=== PATIENT | female | born 1945 | race Hispanic/Latino ===

== ENCOUNTER 2017-12-06 22:11 | Inpatient (IN) | payer MEDICARE ==
[2017-12-06] MEDS ORDERED: Adenosine 6 MG/2 ML VIAL ONE ×2 (22:49→22:53)
[2017-12-06 22:59] LABS: #Basophils 0.1 thou/uL (0.0-0.2); #Eosinphils 0.3 thou/uL (0.0-0.7); #Lymphocytes 3.3 thou/uL (1.20-3.40); #Monocytes 0.8 thou/uL (0.11-0.59); #Neutrophils 4.3 thou/uL (1.40-6.50); %Basophils 0.6 % (0.0-1.0); %Eosinophils 3.1 % (0.0-10.0); %Lymphocytes 38.1 % (21.0-51.0); %Monocytes 8.7 % (0.0-10.0); %Neutrophils 49.5 % (42.0-75.0); Hemoglobin 12.9 g/dL (12.0-16.0); Mean Corpuscular HGB CONC 33.1 g/dL (32.0-36.0); Mean Corpuscular Hemoglobin 30.8 pg (27.0-31.0); Mean Corpuscular Volume 93.1 fl (81.0-99.0); Mean Platelet Volume 8.6 fL (7.4-10.4); Platelet Count 218 thou/uL (130-400); RBC Distribution Width 12.1 % (11.5-14.5); Red Blood Cell (RBC) Count 4.19 mill/uL (4.20-5.40); White Blood Cell (WBC) Count 8.7 thou/uL (4.8-10.8)
--- NOTE | 2017-12-06 23:06 | RAD ---
AP VIEW OF THE CHEST: 12/06/17 INDICATION: Chest pain. FINDINGS: There is a generator pack overlying the left chest wall. Lungs are clear. Heart size is normal. No pl eural effusion, or pneumothorax is evident. IMPRESSION: No acute abnormality. POS: KIMBERLYH
[2017-12-06 23:22] LABS: ALT (SGPT) 62 U/L (8-55); AST (SGOT) 59 U/L (5-34); Albumin 4.1 g/dL (3.4-4.8); Alkaline Phosphatase 127 U/L (40-150); Anion Gap 15 mmol/L (10-20); BUN (Urea Nitrogen) 19 mg/dL (9.8-20.1); Bilirubin, Total 0.4 mg/dL (0.2-1.2); CK (CPK) 134 U/L (29-168); Calc. Creatinine Clearance 0 mL/min (70-130); Calcium 9.5 mg/dL (7.8-10.44); Carbon Dioxide 23 mmol/L (23-31); Chloride 105 mmol/L (98-107); Estimated GFR-MDRD 67; Globulin 3.1 g/dL (2.4-3.5); Glucose 235 mg/dL (83-110); Potassium 3.2 mmol/L (3.5-5.1); Protein, Total 7.2 g/dL (6.0-8.3); Sodium 140 mmol/L (136-145)
[2017-12-06 23:25] LABS: CKMB 1.9 ng/mL (0-6.6); Troponin I Less than 0.010 ng/mL (< 0.028)
[2017-12-06 23:46] LABS: Free T4 (Free Thyroxine) 1.25 ng/dL (0.70-1.48); Thyroid Stimulating Hormone 1.6104 uIU/mL (0.35-4.94)
[2017-12-07] MEDS ORDERED: Lorazepam 1 MG TAB PO PRN (03:41)
[2017-12-07] MEDS ORDERED: HumaLOG 300 UNITS/3 ML VIAL SC PRN ×2 (03:41)
[2017-12-07] MEDS ORDERED: Calcium Carbonate 500 MG ChewTAB PO PRN (03:41)
[2017-12-07] MEDS ORDERED: hydrALAZINE 20 MG/ML VIAL SLOW IVP PRN (03:41)
[2017-12-07] MEDS ORDERED: Senokot 8.6 MG TAB PO PRN (03:41)
[2017-12-07] MEDS ORDERED: traMADol HCl 50 MG TAB PO PRN (03:41)
[2017-12-07] MEDS ORDERED: Diabetic Tussin 200 MG/10 ML UDCUP PO PRN (03:41)
[2017-12-07] MEDS ORDERED: Dextrose 5% in Water 1,000 ML IV PRN (03:41)
[2017-12-07] MEDS ORDERED: Bisacodyl 5 MG TAB PO PRN (03:41)
[2017-12-07] MEDS ORDERED: Ondansetron HCl/PF 4 MG/2 ML Vial IVP PRN ×2 (03:41)
[2017-12-07] MEDS ORDERED: Benzonatate 100 MG CAP PO PRN (03:41)
[2017-12-07] MEDS ORDERED: Mag-Al 1200 mg/1200 mg/30 ML UDCUP PO PRN (03:41)
[2017-12-07] MEDS ORDERED: Loratadine 10 MG TAB PO PRN (03:41)
[2017-12-07] MEDS ORDERED: cloNIDine 0.1 MG TAB PO PRN (03:41)
[2017-12-07] MEDS ORDERED: Nitroglycerin 0.4 MG TAB (25 Tab Bottle) SL PRN (03:41)
[2017-12-07] MEDS ORDERED: Dextrose 50% Abboject 50 ML SYRINGE SLOW IVP PRN (03:41)
[2017-12-07] MEDS ORDERED: Acetaminophen 325 MG TAB PO PRN (03:41)
[2017-12-07 04:48] LABS: Troponin I 0.071 ng/mL (< 0.028)
--- NOTE | 2017-12-07 05:31 | HP ---
DATE OF ADMISSION: 12/07/2017 PRIMARY CARE PHYSICIAN: Josefina Hightower M.D. CHIEF COMPLAINT: Arrhythmia. HISTORY OF PRESENTING ILLNESS: Ms. Colby is a pleasant 72-year-old female with past medical history of diabetes, hypertension and dyslipidemia, who presented to the ER after she received a call from h er accounting recruiter, Dr. Munoz's office. History is mainly obtained by the patient herself and electr onic medical records have been reviewed. According to Ms. Colby, she has history of palpitations since she was a teenager. On and off, it ward ppens, but she has not had any workup done up until 2 weeks ago. She was referred to Cardiology 2 we eks ago for complaints of palpitation and was given a heart monitor to wear. Today, she received a c all and was told to come to the emergency room after the heart monitor captured some arrhythmias. Upon presentation to the emergency room last evening, she was found to have heart rate in the 180s. Today, she was not experiencing any chest pain, pressure, palpitations or shortness of breath. Upon presentation, she was found to be in SVTs with heart rate anywhere from 170-190 beats per minute. Gerald goldberg received adenosine x2 without any effect and eventually verapamil which helped convert her heart ra te to normal sinus rhythm. She is now being admitted for further evaluation and care. PAST MEDICAL HISTORY: 1. Diabetes mellitus. 2. Hypertension. 3. Dyslipidemia. 4. Osteoarthritis. 5. 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 PAST SURGICAL HISTORY: 1. Total knee replacement. 2. Cholecystectomy. 3. Hysterectomy. ALLERGIES: Allergic to EPINEPHRINE. SOCIAL HISTORY: She is and lives with the family. She works at [employer]. No history of drug, tobacco or alcohol abuse. She has 3 children. FAMILY HISTORY: Significant for colon cancer in her brother and heart disease in her mother. CURRENT MEDICATIONS: As listed in the emergency room record today, amlodipine 5 mg daily, clonidine 0.1 mg b.i.d., metformin 500 mg b.i.d., metoprolol succinate 100 mg 1-1/2 tablet once a day, potassiu m chloride 10 mEq daily, levothyroxine 50 mcg daily, losartan/hydrochlorothiazide 100 mg/12.5 mg ethan y, pantoprazole 40 mg daily. REVIEW OF SYSTEMS: The following complete review of systems was negative, unless otherwise mentioned in the HPI or below: Constitutional: Weight loss or gain, ability to conduct usual activities. Skin: Rash, itching. Eyes: Double vision, pain. ENT/Mouth: Nose bleeding, neck stiffness, pain, tenderness. Cardiovascular: Palpitations, dyspnea on exertion, orthopnea. Respiratory: Shortness of breath, wheezing, cough, hemoptysis, fever or night sweats. Gastrointestinal: Poor appetite, abdominal pain, heartburn, nausea, vomiting, constipation, or diarr hea. Genitourinary: Urgency, frequency, dysuria, nocturia. Musculoskeletal: Pain, swelling. Neurologic/Psychiatric: Anxiety, depression. Allergy/Immunologic: Skin rash, bleeding tendency. It is negative except for those mentioned in the history and physical. LABORATORY DATA AND IMAGING DATA: CBC is unremarkable. Serum chemistry shows potassium of 3.2, bloo d sugar 235, AST 59 and ALT 62. Cardiac enzymes, troponin less than 0.010. Upon presentation, it ward s jumped up to 0.071. TSH and free T4 within normal limits. Chest x-ray by my review has no evidenc e to suggest pleural effusion, edema or infiltrate. Twelve lead EKG by my review shows normal sinus rhythm with first-degree AV block with normal ST and T waves. This is after the conversion. PHYSICAL EXAMINATION: VITAL SIGNS: Upon presentation, blood pressure 139/97, heart rate of 172, respirations 18, temperatu re 97.6 and saturating 96% on room air. GENERAL: No acute distress, lying comfortably in bed. Daughter is at bedside. Awake, alert and diandra ented x3. HEENT: Mucous membrane is moist and pink. No oropharyngeal exudate or erythema. Head is normocepha lic, atraumatic. Pupils are equal, reactive to light and accommodation. Extraocular movement intact . NECK: Supple without any lymphadenopathy, JVD or bruit. CHEST: Clear to auscultation without any wheezing, rales or rhonchi. Rhythm is regular without any murmur, rubs or gallops. ABDOMEN: Soft, nontender, nondistended, positive bowel sounds. EXTREMITIES: Free of any cyanosis, clubbing, or edema. NEUROLOGIC: Examination is nonfocal. SKIN: Free of any rashes or bruises. Feel warm and dry to touch. NEUROLOGIC: Examination is nonfocal. PSYCHIATRIC: Normal affect. IMPRESSION AND PLAN: 1. Supraventricular tachycardia. This has been aborted by the use of the verapamil. She maintains in the normal sinus rhythm. Cause is unclear at this time. We will restart her home medications of blood pressure control and consult Cardiology for further evaluation. Echocardiogram will also be ob tained and we will continue to trend serial cardiac enzymes. 2. Diabetes mellitus. Start her on insulin sliding scale with frequent Accu-Cheks. 3. History of hypertension. Resume her home medication of amlodipine, clonidine, metoprolol, as wel l as losartan and hydrochlorothiazide with close monitoring. 4. History of dyslipidemia. The patient does not seem to be on any statins at this time. 5. Hypothyroidism. We will continue her levothyroxine 50 mcg for now. 6. Deep venous thrombosis and gastrointestinal prophylaxis. 7. Code status: FULL CODE. Discussed with the patient. 8. Add p.r.n. medication order. 9. Symptomatic and supportive care. DISPOSITION: Ms. Colby is currently being admitted to the hospital for SVT which has been controlle d with the use of verapamil. Estimated length of stay is at least 2-3 midnights. We will consult El ectrophysiology as well as Cardiology for further recommendations.
[2017-12-07 07:42] LABS: Troponin I 0.074 ng/mL (< 0.028)
[2017-12-07] MEDS ORDERED: Amlodipine 5 MG TAB ONE (08:21)
[2017-12-07] MEDS ORDERED: Enoxaparin Sodium 40 MG/0.4 ML SYRINGE ONE (08:21)
[2017-12-07] MEDS ORDERED: Famotidine 20 MG TAB PO SCH (09:00)
[2017-12-07 13:36] VITALS: BMI 31.8
[2017-12-07] MEDS: Verapamil 5 MG/2 ML VIAL IVP SCH ×2 (13:40→13:41)
[2017-12-07] MEDS: Amlodipine 5 MG TAB PO SCH (13:41)
[2017-12-07] MEDS: Levothyroxine Sodium 50 MCG TAB PO SCH (13:41)
[2017-12-07] MEDS: Enoxaparin Sodium 40 MG/0.4 ML SYRINGE SC SCH (13:41)
[2017-12-07] MEDS: Losartan/Hydrochlorothiazide 100 mg/25 mg Tablet PO SCH (13:42)
[2017-12-08 05:12] LABS: #Eosinphils 0.3 thou/uL (0.0-0.7); #Lymphocytes 1.9 thou/uL (1.20-3.40); #Monocytes 0.4 thou/uL (0.11-0.59); #Neutrophils 2.6 thou/uL (1.40-6.50); %Basophils 0.6 % (0.0-1.0); %Eosinophils 6.1 % (0.0-10.0); %Lymphocytes 35.7 % (21.0-51.0); %Monocytes 7.9 % (0.0-10.0); %Neutrophils 49.5 % (42.0-75.0); Hemoglobin 12.8 g/dL (12.0-16.0); Mean Corpuscular HGB CONC 33.1 g/dL (32.0-36.0); Mean Corpuscular Hemoglobin 30.9 pg (27.0-31.0); Mean Corpuscular Volume 93.4 fl (81.0-99.0); Mean Platelet Volume 8.3 fL (7.4-10.4); Platelet Count 187 thou/uL (130-400); Red Blood Cell (RBC) Count 4.16 mill/uL (4.20-5.40); White Blood Cell (WBC) Count 5.3 thou/uL (4.8-10.8)
[2017-12-08 05:24] LABS: Anion Gap 11 mmol/L (10-20); BUN (Urea Nitrogen) 10 mg/dL (9.8-20.1); Calc. Creatinine Clearance 121 mL/min (70-130); Calcium 9.5 mg/dL (7.8-10.44); Carbon Dioxide 28 mmol/L (23-31); Chloride 104 mmol/L (98-107); Estimated GFR-MDRD Greater than 90; Glucose 137 mg/dL (83-110); Potassium 3.2 mmol/L (3.5-5.1); Sodium 140 mmol/L (136-145)
[2017-12-08] MEDS: Levothyroxine Sodium 50 MCG TAB PO SCH (06:03)
--- NOTE | 2017-12-08 07:49 | CON ---
DATE OF CONSULTATION: 12/07/2017 HISTORY: The patient is a 72-year-old woman who presents for evaluation of palpitations. The patient has no previous cardiac history. She states for many years she has had palpitations and tachycardia. The patient states that her symptoms never last for a prolonged period of time. The patient recently had an event recorder placed and developed recurrent palpitations. The symptoms persisted and she came to the emergency room for further evaluation. The patient denies having any chest discomfort. The patient did not feel dyspneic. The patient received adenosine and eventually converted to sinus rhythm. The patient has multiple cardiac risk factors including diabetes mellitus, hypertension, hypercholesterolemia, and a family history of coronary artery disease. PAST MEDICAL HISTORY: 1. Hypertension. 2. Hypercholesterolemia. 3. Diabetes mellitus. PAST SURGICAL HISTORY: Cholecystectomy, appendectomy, oophorectomy, hysterectomy, knee surgery, and ankle surgery. SOCIAL HISTORY: Nonsmoker. FAMILY HISTORY: There is a strong family history of coronary artery disease. MEDICATIONS ON ADMISSION. Losartan/HCTZ 120/12.5 daily, metoprolol 150 XL daily , Synthroid 50 mcg daily, potassium 10 daily, Protonix 40 daily, Glucophage 500 b.i.d., clonidine 0.1 b.i.d., Norvasc 10 daily. REVIEW OF SYSTEMS: The patient reports having abdominal discomfort. She has no history of easy bruising or bright red blood per rectum. Ten-point system otherwise unremarkable. PHYSICAL EXAMINATION: GENERAL: This is an obese woman in no acute distress. VITAL SIGNS: Blood pressure 154/72. NECK: No jugular venous distention. LUNGS: Clear to auscultation. HEART: Regular rate and rhythm, normal S1, S2, no murmurs. ABDOMEN: Nondistended. EXTREMITIES: No edema. SKIN: Warm and dry. NEUROLOGIC: Nonfocal. VASCULAR: Radial pulses are 2+. LABORATORY RESULTS: Revealed her to have a white blood count 8.7, hemoglobin 12.9, hematocrit 39.0, platelets are 218. Sodium 140, potassium 3.2, chloride 105, bicarbonate 23, BUN 19, creatinine 0.83, glucose 235. Troponin was 0.074. Her EKG revealed her to have supraventricular tachycardia with an ST-T wave abnormality suggestive of ischemia. IMPRESSION: 1. Supraventricular tachycardia. 2. Diabetes mellitus. 3. Hypertension. 4. Dyslipidemia. 5. Obesity. This patient presents with SVT. The patient is already on high dose beta christian therapy. From a cardiac standpoint, would recommend an EP evaluation for possible ablation. We will follow this patient with you through her hospitalization. VALE
[2017-12-08 08:43] LABS: Free T4 (Free Thyroxine) 1.24 ng/dL (0.70-1.48); Thyroid Stimulating Hormone 1.1408 uIU/mL (0.35-4.94)
[2017-12-08] MEDS: Losartan/Hydrochlorothiazide 100 mg/25 mg Tablet PO SCH (08:46)
[2017-12-08] MEDS: Enoxaparin Sodium 40 MG/0.4 ML SYRINGE SC SCH (08:48)
[2017-12-08] MEDS: Amlodipine 5 MG TAB PO SCH (08:48)
--- NOTE | 2017-12-08 10:45 | PQF ---
DATE: 12/08/17 ATTN: DR. MARLA SAUL Please exercise your independent, professional judgment in responding to the clarification form. Clinical indicators are provided on the bottom of this form for your review Please check appropriate box(s): [ x ] Demand Ischemia [ ] Insignificant Lab Values [ ] Other diagnosis [ ] Unable to determine In addition, please specify: Present on Admission (POA): [ x ] Yes [ ] No [ ] Unable to determine CLINICAL INDICATORS - SIGNS / SYMPTOMS / LABS TROPONIN: 12-06-17: LESS THAN 0.010 12-07-17 0.071 12-07-17: 0.[address] RODRIGUEZ 12-07-17: HER EKG REVEALED HER TO HAVE SVT WITH ST- T WAVE ABNORMALITY SUGGESTIVE OF ISCHEMIA. RISKS: CONSULT NOTE DR. RODRIGUEZ 12-07-17: CARDIAC RISK FACTORS INCLUDING DIABETES MELLITUS, HTN, HYPERCHOLESTEROLEMIA, AND FAMILY HX OF CAD. TREATMENTS: CARDIOLOGY CONSULT CONTINUOUS CARDIAC MONITORING (This form is maintained as a part of the permanent medical record) 2014 [employer]. All Rights Reserved KAREN [email or web address] Office: [phone] VALE
--- NOTE | 2017-12-08 11:45 | PDOC.PN ---
- Subjective Encounter Start Date: 12/08/17 Encounter Start Time: 11:00 Subjective: has no c/o palp or chest pain -: multiple family members in room - Objective MAR Reviewed: Yes Vital Signs & Weight: Vital Signs (12 hours) Temp Pulse Resp BP Pulse Ox 12/08/17 08:45 97.9 F 67 16 144/75 H 94 L 12/08/17 05:22 94 L 12/08/17 04:51 98.1 F 69 16 149/72 H 97 Weight Weight 215 lb 4.8 oz I&O: 12/07/17 12/08/17 12/09/17 06:59 06:59 06:59 Output Total 1000 Balance -1000 Result Diagrams: 12/08/17 04:49 12/08/17 04:49 Additional Labs: Accuchecks 12/08/17 12/07/17 12/07/17 05:32 21:43 16:51 POC Glucose 153 H 210 H 128 H Phys Exam - Physical Examination HEENT: PERRLA, moist MMs Neck: no JVD, supple Respiratory: no wheezing, no rales Cardiovascular: RRR, no significant murmur Gastrointestinal: soft, non-tender, positive bowel sounds Musculoskeletal: no edema, pulses present Neurological: non-focal, moves all 4 limbs Psychiatric: A&O x 3 Dx/Plan (1) SVT (supraventricular tachycardia) Code(s): I47.1 - SUPRAVENTRICULAR TACHYCARDIA Status: Resolved (2) DM type 2 (diabetes mellitus, type 2) Status: Chronic Qualifiers: Diabetes mellitus intermediate insulin use: without moth exterminator use Diabetes mellitus complication status: with unspecified complications Qualified Code(s) : E11.8 - Type 2 diabetes mellitus with unspecified complications (3) HTN (hypertension) Code(s): I10 - ESSENTIAL (PRIMARY) HYPERTENSION Status: Chronic Qualifiers: Hypertension type: essential hypertension Qualified Code(s): I10 - Essential (primary) hypertension (4) Hypothyroidism Code(s): E03.9 - HYPOTHYROIDISM, UNSPECIFIED Status: Chronic Qualifiers: Hypothyroidism type: unspecified Qualified Code(s): E03.9 - Hypothyroidism , unspecified (5) Demand ischemia of myocardium Code(s): I24.8 - OTHER FORMS OF ACUTE ISCHEMIC HEART DISEASE Status: Acute Comment: stable - Plan is being kept npo for possible EPS this afternoon -: is in sinus rhythm with no further episodes of svt -: is on high dose toprol xl 125mg daily and norvasc 5mg daily -: follows up with , thinks she had stress test in the last 4yrs -v * . Review of Systems - Medications/Allergies Allergies/Adverse Reactions: Allergies Allergy/AdvReac Type Severity Reaction Status Date / Time epinephrine Allergy Verified 12/07/17 13:39 CAT GUT SUTURES Allergy Severe BLEEDING Uncoded 11/08/13 12:16 POST OP Medications: Current Medications Acetaminophen (Tylenol) 650 mg PO Q4H PRN PRN Reason: Headache/Fever or Pain Al Hydroxide/Mg Hydroxide (Maalox) 30 ml PO Q6H PRN PRN Reason: Heartburn or Indigestion Amlodipine Besylate (Norvasc) 5 mg PO DAILY [facility] Last Admin: 12/08/17 08:48 Dose: 5 mg Benzonatate (Tessalon) 100 mg PO Q4H PRN PRN Reason: Cough Bisacodyl (Dulcolax) 10 mg PO DAILYPRN PRN PRN Reason: Constipation Calcium Carbonate (Tums) 1,000 mg PO Q4H PRN PRN Reason: Heartburn or Indigestion Clonidine (Catapres) 0.1 mg PO Q4H PRN PRN Reason: Systolic BP > 160 Dextrose/Water (Dextrose 50%) 25 gm SLOW IVP PRN PRN PRN Reason: Hypoglycemia Enoxaparin Sodium (Lovenox) 40 mg SC 0900 [facility] Last Admin: 12/08/17 08:48 Dose: Not Given Glucagon (Glucagon) 1 mg IM PRN PRN PRN Reason: Hypoglycemia Guaifenesin (Robitussin Sf) 200 mg PO Q4H PRN PRN Reason: Cough HCTZ/Losartan Potassium (Hyzaar 100/25) 1 tab PO DAILY [facility] Last Admin: 12/08/17 08:46 Dose: 1 tab Hydralazine HCl (Apresoline) 10 mg SLOW IVP Q4H PRN PRN Reason: Systolic BP > 170 Dextrose/Water (D5w) 1,000 mls @ 0 mls/hr IV .Q0M PRN; As Directed PRN Reason: Hypoglycemia Insulin Human Lispro (Humalog) 0 units SC .MODERATE SLIDING SC PRN PRN Reason: Moderate Correctional Scale Insulin Human Lispro (Humalog) 0 units SC .BEDTIME SLIDING SC PRN PRN Reason: Bedtime Correctional Scale Levothyroxine Sodium (Synthroid) 50 mcg PO 0600 [facility] Last Admin: 12/08/17 06:03 Dose: 50 mcg Loratadine (Claritin) 10 mg PO DAILYPRN PRN PRN Reason: Sinus Symptoms Lorazepam (Ativan) 1 mg PO Q4H PRN PRN Reason: Anxiety/Agitation Metoprolol Succinate (Toprol Xl) 125 mg PO DAILY [facility] Last Admin: 12/08/17 08:51 Dose: 125 mg Nitroglycerin (Nitrostat) 0.4 mg SL Q5MIN PRN PRN Reason: Chest Pain Ondansetron HCl (Zofran) 4 mg IVP Q6H PRN PRN Reason: Nausea/Vomiting Ondansetron HCl (Zofran) 4 mg IVP Q6H PRN PRN Reason: Nausea/Vomiting Pantoprazole Sodium (Protonix) 40 mg PO DAILY [facility] Last Admin: 12/08/17 08:48 Dose: 40 mg Senna (Senokot) 2 tab PO HSPRN PRN PRN Reason: Constipation Tramadol HCl (Ultram) 50 mg PO Q4H PRN PRN Reason: Moderate Pain (4-6)
[2017-12-08 13:05] VITALS: TEMP 98.3
[2017-12-08 15:41] VITALS: BP 137/69
--- NOTE | 2017-12-08 15:48 | CON ---
DATE OF CONSULTATION: 12/08/2017 FACUNDO Muñoz, dictating for Dr. Mccrary. REFERRING PHYSICIAN: Dr. Jett Alexander. PRIMARY MERIT SYSTEM DIRECTOR: Dr. Butch Munoz. REASON FOR CONSULTATION: Supraventricular tachycardia. HISTORY OF PRESENT ILLNESS: Ms. Colby is a very pleasant 72-year-old woman, who presented to the emergency room for palpitations. She has had paroxysmal palpitations and heart racing for yea rs. She has worn multiple monitors in the past, which had not captured any arrhythmias and reportedl y had a loop recorder placed in the recent past. Her heart rates and palpitations persisted longer t wynn usual with this episode and she presented to the emergency room for further evaluation. She has not had any chest discomfort or shortness of breath with her palpitations or heart racing. She recei mp a dose of adenosine, which converted her to sinus rhythm. She has been on fairly high-dose metop rolol for her palpitations. Today, she reports that she is feeling well. She has not had any recent fevers, chills, malaise, night sweats, or illnesses. Other than her heart racing and palpitations, she has no cardiac concerns. PAST MEDICAL HISTORY: 1. Hypertension. 2. Hypercholesterolemia. 3. Diabetes. PAST SURGICAL HISTORY: Cholecystectomy, appendectomy, oophorectomy, hysterectomy, knee surgery, ankl e surgery, and reported ILR implantation. REVIEW OF SYSTEMS: Twelve-point review of systems was conducted and is negative except that listed i n the HPI. SOCIAL HISTORY: Negative for tobacco habituation, alcohol consumption, or illicit drug use. FAMILY HISTORY: There is not a strong family history of coronary artery disease. HOME MEDICATIONS: Losartan/hydrochlorothiazide 120/12.5 p.o. daily, metoprolol 150 mg daily, Synthro id 50 mcg daily, potassium 10 mEq daily, Protonix 40 mg daily, Glucophage 500 mg b.i.d., clonidine 0. 1 mg b.i.d., Norvasc 10 mg daily. PHYSICAL EXAMINATION: VITAL SIGNS: Most recent vital signs are 98.3, pulse is 69, respirations 15, oxygen saturation 94% o n room air, blood pressure 172/79. GENERAL: This is a well-nourished, well-groomed, obese woman in no acute distress. She is alert and oriented. HEENT: Her speech is clear. Her affect is appropriate. She does appear somewhat stressed and anxio us today. NECK: Supple without jugular venous distention. Oral mucosa is moist and pink with adequate dentiti on. Her thyroid is nonpalpable and there is no lymphadenopathy. LUNGS: Clear to auscultation bilaterally without wheezes, crackles, or rhonchi. CARDIOVASCULAR: Rate is irregularly irregular, without murmur, rub, or gallop. EXTREMITIES: Warm and dry to touch without clubbing or cyanosis. Bilateral lower extremity edema is present with greater on the right than on left; however, this is chronic. ABDOMEN: Soft, nontender without palpable masses and there are positive bowel sounds noted throughou t. NEUROLOGIC EXAM: Grossly intact cranial nerves II-XII and exam is nonfocal. DATABASE: Laboratory on 12/08/2017, WBC 5.3, hemoglobin 12.8, hematocrit 38.9, platelet count 187. Chemistry on 12/08/2017, sodium 140, potassium 3.2, chloride 104, carbon dioxide 28, BUN 10, creatini ne 0.64, calcium 9.5, TSH 1.14, free T4 1.24, and free T3 is 2.34. Telemetry and EKG review, currently in a sinus rhythm with a first-degree AV block with AR intervals at 220 milliseconds. 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 Chest x-ray on 12/06/2017, no acute abnormalitie s. No pleural effusion within the thorax. Troponin was 0.074. IMPRESSION: 1. 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 2. Hypertension. 3. Diabetes mellitus. 4. Dyslipidemia. 5. Obesity. RECOMMENDATIONS: I find the patient likely has been having paroxysmal SVTs for years and has finally captured on EKG and rhythm strips. At this point, she is stable and her heart rates are well contro lled. We will schedule her for an outpatient EP study with ablation likely for AVNRT to follow allie jones the next 1-2 weeks. Until then, we recommend continued rate control. This was all discussed with the patient and her family at length and all questions were answered. Risks include bleeding and hem atoma at groin site, damage to the veins, perforation of the heart, cardiac arrhythmias, and need for additional tube placement or surgical repair. We also discussed medical management versus ablation. The patient and her family members verbalized understanding and wished to proceed with scheduling a s an outpatient in the near future. Thank you for allowing us to follow this patient that she is cleared for discharge from our standpoin t.
--- NOTE | 2017-12-09 01:29 | DIS ---
DATE OF ADMISSION: 12/07/2017 DATE OF DISCHARGE: 12/08/2017 DISCHARGE DISPOSITION: To home. PRIMARY DISCHARGE DIAGNOSIS: Supraventricular tachycardia, in sinus rhythm. SECONDARY DISCHARGE DIAGNOSES: Diabetes mellitus, type 2; hypertension; hypothyroidism; demand ischemia due to supraventricular tachycardia, resolved. PROCEDURES DONE DURING HOSPITALIZATION: Chest x-ray done showed no acute abnormality. Free T3, free T4 were 2.3 and 1.2 respectively. TSH 1.14, BUN 11 , creatinine 0.6, troponin was indeterminate and peaked up to 0.07, CK-MB 1.9, H &H was 12 and 38. DISCHARGE MEDICATIONS: The patient to continue all her home medications as before including Norvasc 5 mg p.o. daily, clonidine 0.1 mg p.o. twice daily, Zetia with simvastatin 10/10 mg p.o. daily, levothyroxine 50 mcg p.o. daily, losartan with hydrochlorothiazide 100/12.5 mg p.o. daily, metformin 500 mg p.o. twice daily, Toprol-XL 150 mg p.o. daily, Protonix 40 mg p.o. daily, potassium chloride 10 mEq p.o. daily ALLERGIES: Allergic to EPINEPHRINE, allergic to CATGUT SUTURES. INPATIENT CONSULTS: Dr. Alexander for Cardiology and Dr. Chicas for Electrophysiology. DISCHARGE PLAN: The patient to follow up with primary care physician in one week and Dr. Chicas will schedule the patient for outpatient EP study with ablation in 1-2 weeks. BRIEF COURSE DURING HOSPITALIZATION: The patient initially got admitted on 09/2017 with complaints of palpitations. She was found to be in SVT. She was given adenosine x2 without any effect and was given verapamil, which helped her convert to sinus rhythm. She has had consultation with Dr. Alexander for Cardiology and Dr. Chicas for Electrophysiology. The patient was actually scheduled for Electrophysiology this afternoon, but due to equipment breakdown and patient being stable, she is being advised to follow up in 1-2 weeks for EP evaluation and possible ablation. This will be arranged through Dr. Chicas's office. She is hemodynamically stable and is currently in normal sinus rhythm. She needs to continue her home medications including Toprol-XL and Norvasc as before. The patient is wanting to go home and has been cleared by casserole preparer, Dr. Chicas. Please see a [id number] documentation on [facility] for the day of discharge. [facility]
--- NOTE | 2017-12-13 20:13 | EKG ---
Test Reason : PALPITATIONS Blood Pressure : / mmHG Vent. Rate : 173 BPM Atrial Rate : 173 BPM P-R Int : 000 ms QRS Dur : 084 ms QT Int : 270 ms P-R-T Axes : 000 -13 152 degrees QTc Int : 458 ms Supraventricular tachycardia Marked ST abnormality, possible inferior subendocardial injury Lateral ST depression Abnormal ECG Confirmed by ANA GILBERT ([id number]), purchasing expeditor FENRANDO SLAUGHTER ([id number]) on 12/13/2017 8:13:27 PM Referred By: Confirmed By:ANA GILBERT
== END 2017-12-08 17:29 | disposition home or self-care (01) | DRG 309 ==
LOC: ERS 22:11 → ERHOLD 12-07 00:15 → 2NO 12-07 13:13
PROVIDERS: ADMIT Internal Medicine; ATTEND Internal Medicine
DX: I47.1 Supraventricular tachycardia (principal); I24.8 Other forms of acute ischemic heart disease; E11.9 Type 2 diabetes mellitus without complications; E03.9 Hypothyroidism, unspecified; I10 Essential (primary) hypertension; M19.90 Unspecified osteoarthritis, unspecified site; Z86.11 Personal history of tuberculosis; Z88.8 Allergy status to other drugs, medicaments and biological substances; Z79.01 Long term (current) use of anticoagulants; E78.00 Pure hypercholesterolemia, unspecified; E66.9 Obesity, unspecified; Z68.31 Body mass index [BMI] 31.0-31.9, adult; Z96.653 Presence of artificial knee joint, bilateral; I44.0 Atrioventricular block, first degree
CPT/HCPCS: 36415; 36416; 71045; 80048; 80053; 82550; 82553; 84439; 84443; 84481; 84484; 85025; 93005; 93306; 96361; 96372; 96374; 96375; J0153; J1650

== ENCOUNTER 2017-12-16 12:19 | Day surgery (SDC) | payer MEDICARE ==
[2017-12-15 13:55] VITALS: BMI 36.9
[2017-12-16 13:28] LABS: PTT 27.3 SEC (22.9-36.1); Prothrombin Time 13.3 SEC (12.0-14.7)
[2017-12-16] MEDS ORDERED: PROPOFOL 200 MG/20 ML VIAL ONE (13:36)
[2017-12-16] MEDS ORDERED: PHENYLEPHRINE-NS 100 MCG/ML 10 ML SYRINGE ONE ×2 (13:36→15:56)
[2017-12-16] MEDS ORDERED: Heparin 10,000 UNITS/1 ML VIAL ONE (14:16)
[2017-12-16] MEDS ORDERED: Propofol 1,000 MG/100 ML VIAL IV ONE (14:16)
[2017-12-16] MEDS ORDERED: Lidocaine 1% (PF) 30 ML VIAL ONE (14:20)
[2017-12-16] MEDS ORDERED: Isoproterenol 0.2 MG/1 ML AMP ONE (15:39)
--- NOTE | 2017-12-17 07:54 | EKG ---
Test Reason : PREOP Blood Pressure : / mmHG Vent. Rate : 093 BPM Atrial Rate : 093 BPM P-R Int : 224 ms QRS Dur : 092 ms QT Int : 384 ms P-R-T Axes : 052 -26 035 degrees QTc Int : 477 ms Sinus rhythm with 1st degree A-V block with Premature atrial complexes Borderline ECG When compared with ECG of 06-DEC-2017 23:20, (Unconfirmed) Premature atrial complexes are now Present Confirmed by MIRIAN MANCUSO ([id number]) on 12/17/2017 7:54:18 AM Referred By: ANDRADE Confirmed By:MIRIAN MANCUSO
--- NOTE | 2017-12-17 10:32 | OP ---
DATE OF PROCEDURE: 12/16/2017 REFERRING PHYSICIAN: Andres Bishop M.D. ELECTROPHYSIOLOGY STUDY AND RADIOFREQUENCY ABLATION REPORT REASON FOR PROCEDURE: Mrs. Colby is a 72-year-old female who presented with narrow complex tachyarr hythmia. 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 She is here for assessment of he r arrhythmias status post ablation. PROCEDURE: The patient received deep sedation by Anesthesia specialist after which the left and righ t femoral venous area was prepped, draped, anesthetized using subcutaneous lidocaine and with ultraso und guidance. The left and right femoral veins were cannulated. A 6 and 8 Yoruba sheaths on the lef t and 8 Yoruba sheath on right were inserted. Through these sheaths, a Decapolar catheter was advanc ed to the CS position. An octapolar catheter was advanced to the right ventricular His bundle and ri ght atrial positions. Basic EP study was obtained with the following finding. Basic cycle length 740 milliseconds, MI 238 milliseconds, QRS 101 milliseconds, QT 408 milliseconds, AH 176 milliseconds, HV 54 milliseconds noted. The sinus node recovery time was 1130, corrected sinu s node recovery time is 330. The AV Wenckebach cycle length was 360 initially, retrograde Wenckebach cycle length was 380 milliseconds. AV jeff ERP in the beginning was 600/260. Dual AV jeff physio logy was demonstrated. VA pacing demonstrated concentric retrograde VA conduction. No evidence of a ccessory pathway was found. Following that, burst atrial pacing, we were able to induce a narrow complex SVT with VA timing less than 40 milliseconds typical for jeff reentrant tachycardia. Ventricular overdrive pacing terminate d the arrhythmia. The induction was reliably achievable with atrial extrastimuli testing as well as burst atrial pacing. Following that, a standard 4 mm ablation catheter was advanced to the rig ht atrium and right atrial map was obtained with His bundle and CS delineated. Following that in the slow pathway area, 40 grullon, 50 degree settings, radiofrequency ablation was delivered with a total of 118 milliseconds in duration. During the slow pathway ablation, junctional beats were clearly obs erved. After the second set of lesions, retesting of the AV conduction was performed demonstrating A V jeff ERP changing to 600/400 milliseconds. No more dual pathway was demonstrated. Burst atrial p acing and atrial extrastimuli testing failed to use recurrent atrial arrhythmias. Following that, Is uprel was introduced at 4 mcg per minute during which burst atrial pacing failed to re-induce AVNRT. Frequent PACs were seen, but no atrial fibrillation was noted. Atrial flutter induction with increm ental atrial pacing down to 200 milliseconds cycle length was atrial fibrillation either. CONCLUSION: 1. 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 2. Clear demonstration of dual AV jeff physiology present. 3. No accessory pathway. 4. Successful elimination of inducibility of AV jeff reentry as well as slow pathway conduction wit h a slow pathway ablation which persisted through Isuprel retesting as well. 5. Normal sinus and AV jeff function pre and post-ablation. 6. No change in cardiac silhouette demonstrated.
--- NOTE | 2017-12-18 06:23 | EKG ---
Test Reason : Blood Pressure : / mmHG Vent. Rate : 084 BPM Atrial Rate : 084 BPM P-R Int : 238 ms QRS Dur : 092 ms QT Int : 388 ms P-R-T Axes : 038 -30 029 degrees QTc Int : 458 ms Sinus rhythm with 1st degree A-V block Left axis deviation Abnormal ECG When compared with ECG of 16-DEC-2017 13:47, (Unconfirmed) Premature atrial complexes are no longer Present Confirmed by MIRIAN MANCUSO ([id number]) on 12/18/2017 6:16:25 AM Referred By: Confirmed By:MIRIAN MANCUSO
== END 2017-12-16 19:50 | disposition home or self-care (01) ==
LOC: CCL 12:19
PROVIDERS: ATTEND Internal Medicine Cardiovascular Disease
PROC: 4A023FZ Measurement of Cardiac Rhythm, Percutaneous Approach (ICD-10-PCS; principal; 2017-12-16)
PROC: 4A0234Z Measurement of Cardiac Electrical Activity, Percutaneous Approach (ICD-10-PCS; 2017-12-16)
PROC: 02583ZZ Destruction of Conduction Mechanism, Percutaneous Approach (ICD-10-PCS; 2017-12-16)
DX: I47.1 Supraventricular tachycardia (principal); I10 Essential (primary) hypertension; E78.00 Pure hypercholesterolemia, unspecified; E11.9 Type 2 diabetes mellitus without complications; K21.9 Gastro-esophageal reflux disease without esophagitis; E78.5 Hyperlipidemia, unspecified; G25.81 Restless legs syndrome; E03.9 Hypothyroidism, unspecified; M19.90 Unspecified osteoarthritis, unspecified site; E66.9 Obesity, unspecified; Z68.39 Body mass index [BMI] 39.0-39.9, adult; Z79.84 Long term (current) use of oral hypoglycemic drugs; Z79.899 Other long term (current) drug therapy; Z88.8 Allergy status to other drugs, medicaments and biological substances; Z91.048 Other nonmedicinal substance allergy status
CPT/HCPCS: 76942; 85610; 85730; 93005 ×2; 93613; 93623; 93653; C1730; C1769; 93010; J1644; J2001; J2704

== ENCOUNTER 2018-01-19 12:53 | Emergency (ER) | payer MEDICARE ==
[2018-01-19 13:29] LABS: #Eosinphils 0.1 thou/uL (0.0-0.7); #Lymphocytes 1.9 thou/uL (1.20-3.40); #Monocytes 0.6 thou/uL (0.11-0.59); #Neutrophils 6.3 thou/uL (1.40-6.50); %Basophils 0.4 % (0.0-1.0); %Lymphocytes 21.4 % (21.0-51.0); %Monocytes 6.2 % (0.0-10.0); %Neutrophils 71.1 % (42.0-75.0); Hemoglobin 14.1 g/dL (12.0-16.0); Mean Corpuscular HGB CONC 33.4 g/dL (32.0-36.0); Mean Corpuscular Hemoglobin 30.8 pg (27.0-31.0); Mean Platelet Volume 8.1 fL (7.4-10.4); Platelet Count 241 thou/uL (130-400); RBC Distribution Width 12.3 % (11.5-14.5); Red Blood Cell (RBC) Count 4.59 mill/uL (4.20-5.40); White Blood Cell (WBC) Count 8.9 thou/uL (4.8-10.8)
[2018-01-19 13:47] LABS: ALT (SGPT) 30 U/L (8-55); AST (SGOT) 30 U/L (5-34); Albumin 4.3 g/dL (3.4-4.8); Alkaline Phosphatase 115 U/L (40-150); Anion Gap 13 mmol/L (10-20); BUN (Urea Nitrogen) 11 mg/dL (9.8-20.1); Bilirubin, Total 0.8 mg/dL (0.2-1.2); Calc. Creatinine Clearance 0 mL/min (70-130); Calcium 9.8 mg/dL (7.8-10.44); Carbon Dioxide 26 mmol/L (23-31); Chloride 97 mmol/L (98-107); Estimated GFR-MDRD 83; Globulin 3.6 g/dL (2.4-3.5); Glucose 145 mg/dL (83-110); Lipase 14 U/L (8-78); Potassium 3.1 mmol/L (3.5-5.1); Protein, Total 7.9 g/dL (6.0-8.3); Sodium 133 mmol/L (136-145)
[2018-01-19] MEDS ORDERED: Metoclopramide HCl 10 MG/2 ML VIAL ONE (15:52)
[2018-01-19] MEDS ORDERED: diphenhydrAMINE 50 MG/ML VIAL ONE (15:54)
[2018-01-19] MEDS ORDERED: Ondansetron ODT 4 MG TAB ONE (15:57)
[2018-01-19 16:04] LABS: CKMB 1.8 ng/mL (0-6.6); Troponin I Less than 0.010 ng/mL (< 0.028)
--- NOTE | 2018-01-19 16:13 | CT ---
CT BRAIN: HISTORY: Nausea and vomiting, headache. FINDINGS: Noncontrast-enhanced CT images of the brain obtained. There is an area of hypodensity in the right posterior cerebellum compatible with an area of infarcti on in the right PICA distribution of indeterminate age. No associated hemorrhage is seen. No other masses or lesions seen. The calvarium is unremarkable. The visualized paranasal sinuses are well ae rated. IMPRESSION: Right cerebellar area of hypodensity compatible with an area of infarction of indeterminate age. POS: [facility]
[2018-01-19 17:19] LABS: Bilirubin Negative (Negative); Blood, Urine Negative (Negative); Clarity CLEAR (Clear); Glucose, Urine (Dipstick) Negative (Negative); Leukocyte Negative (Negative); Nitrite Negative (Negative); Protein, Urine (Dipstick) Negative (Neg-Trace); Specific Gravity, Urine 1.009 (1.002-1.036); Urobilinogen 0.2 mg/dL (0.2-1.0)
== END 2018-01-19 17:57 | disposition home or self-care (01) ==
LOC: ERS 12:53
DX: R11.2 Nausea with vomiting, unspecified (principal); R51 Headache; E66.9 Obesity, unspecified; E11.9 Type 2 diabetes mellitus without complications; E78.5 Hyperlipidemia, unspecified; I48.91 Unspecified atrial fibrillation; I10 Essential (primary) hypertension; Z79.84 Long term (current) use of oral hypoglycemic drugs; Z79.899 Other long term (current) drug therapy
CPT/HCPCS: 36415; 70450; 80053; 81003; 82553; 83690; 84484; 85025; 93005; 96361; 96374; 96375; J1200; J2765; Q0162

== ENCOUNTER → 2018-02-23 | Day surgery (SDC) | payer MEDICARE ==
[2018-02-10 12:40] VITALS: BMI 31.4
[~2018-02-23] MED LIST: Lidocaine 1% w/Epinephrine 1:100K 30 ML VIAL ONE
--- NOTE | 2018-02-23 10:52 | OP ---
DATE OF SERVICE: 02/23/2018 SURGEON: Dr. Hermann Chicas PROCEDURE: Loop recorder insertion. REASON FOR PROCEDURE: Ms. Colby is a 73-year-old female with history of atrial fibrillation, prior ablation, recurrent palpitations, rule out recurrent atrial fibrillation episodes, continue monitorin g residential. PROCEDURE: The patient's chest was prepped and draped and anesthetized in the precordial area in the 4th intercostal space. Lidocaine analgesia was used after with a standard insertion kit, a [employer] LINQ loop recorder was inserted into the subcutaneous. Adequate parameters were obtained. CONCLUSION: Successful loop recorder insertion. PLAN: Routine monitoring.
== END ==
LOC: CCL 08:42
PROVIDERS: ATTEND Internal Medicine Cardiovascular Disease
PROC: 0JH632Z Insertion of Monitoring Device into Chest Subcutaneous Tissue and Fascia, Percutaneous Approach (ICD-10-PCS; principal; 2018-02-23)
DX: I48.91 Unspecified atrial fibrillation (principal); I10 Essential (primary) hypertension; E78.5 Hyperlipidemia, unspecified; E03.9 Hypothyroidism, unspecified; Z79.84 Long term (current) use of oral hypoglycemic drugs; Z79.899 Other long term (current) drug therapy; Z88.8 Allergy status to other drugs, medicaments and biological substances; Z86.73 Personal history of transient ischemic attack (TIA), and cerebral infarction without residual deficits
CPT/HCPCS: 33282; C1764; J2001

== ENCOUNTER 2018-03-12 07:52 | Outpatient (CLI) | payer MEDICARE | END 2018-03-12 07:53 | disposition home or self-care (01) | LOC: BICULT 07:52 | PROVIDERS: ATTEND Internal Medicine | DX: E04.2 Nontoxic multinodular goiter (principal) | CPT/HCPCS: 76536 ==

== ENCOUNTER 2018-05-01 08:29 | Outpatient (CLI) | payer MEDICARE ==
[2018-05-01 09:19] LABS: Estimated GFR-MDRD - POC Greater than 90
[2018-05-01] MEDS ORDERED: Gadobenate Dimeglumine 529 MG/1 ML (20ML VIAL) ONE (13:38)
== END 2018-05-01 08:30 | disposition home or self-care (01) ==
LOC: BICMRI 08:29
PROVIDERS: ATTEND Psychiatry & Neurology Neurology
DX: I63.9 Cerebral infarction, unspecified (principal); M41.9 Scoliosis, unspecified
CPT/HCPCS: 70553; 71045; 82565; A9579

== ENCOUNTER 2018-05-21 10:45 | Outpatient (CLI) | payer MEDICARE | END 2018-05-21 10:46 | disposition home or self-care (01) | LOC: BICMAMMO 10:45 | PROVIDERS: ATTEND Internal Medicine | DX: Z12.31 Encounter for screening mammogram for malignant neoplasm of breast (principal) | CPT/HCPCS: 77063; 77067 ==

== ENCOUNTER 2018-05-27 14:21 | Emergency (ER) | payer MEDICARE ==
[2018-05-27] MEDS ORDERED: Morphine 4 MG/ML VIAL ONE (15:08)
[2018-05-27] MEDS ORDERED: Ondansetron HCl/PF 4 MG/2 ML Vial ONE (15:29)
--- NOTE | 2018-05-27 15:32 | RAD ---
4 VIEW RIGHT KNEE: Date: 05/27/18 INDICATION: Pain. FINDINGS: There is a right knee arthroplasty. No acute fracture or dislocation identified. IMPRESSION: Postoperative right knee, without acute osseous abnormality. POS: [facility]
== END 2018-05-27 15:55 | disposition home or self-care (01) ==
LOC: ERS 14:21
DX: S83.91XA Sprain of unspecified site of right knee, initial encounter (principal); E11.9 Type 2 diabetes mellitus without complications; E78.5 Hyperlipidemia, unspecified; I10 Essential (primary) hypertension; I48.91 Unspecified atrial fibrillation; X50.9XXA Other and unspecified overexertion or strenuous movements or postures, initial encounter
CPT/HCPCS: 96374; J2270; J2405

== ENCOUNTER 2018-07-28 07:43 | Outpatient (CLI) | payer MEDICARE ==
--- NOTE | 2018-07-28 11:37 | MRI ---
MRI LUMBAR SPINE WITHOUT CONTRAST: HISTORY: Spinal stenosis, lumbar region. Low back pain x years. Bilateral lower extremity pain, right greate r than left. COMPARISON: None. TECHNIQUE: MRI lumbar spine is performed without intravenous Gadolinium administration. Multisequential, multip lanar imaging is performed. FINDINGS: Appropriate T1 marrow signal intensity of the lumbar vertebrae. Lumbar spine vertebral body height i s maintained. There is no fracture. There are predominantly type II Modic changes of the L2-L3 leve l. There is mild leftward curvature of the lumbar spine with the apex at the L2-L3 level. Symmetric signal intensity of the psoas muscles. Appropriate signal intensity of the visualized cici d organs. Conus medullaris terminates at the superior end plate of L1. T12-L1: Adequate disk hydration. No significant central canal stenosis. Neural foramen are patent L1-L2: Desiccation with mild loss of disk space height. No significant central canal stenosis. Mil d bilateral neural foraminal narrowing. L2-L3: Severe loss of disk space height. Nevertheless, no high-grade central canal stenosis. Mild narrowing of the right subarticular zone. There is disk material that abuts but does not obscure the traversing right L3 nerve root. Moderate right foraminal narrowing. Left neural foraminal narrowin g is patent. L3-L4: Adequate disk hydration. No significant posterior disk abnormality. Mild ligamentum flavum thickening and facet hypertrophy. No significant central canal stenosis. Mild right and left neural foraminal narrowing. L4-L5: Adequate disk hydration. Mild loss of disk space height. Broad-based disk bulge, ligamentum flavum thickening, and facet hypertrophy result in mild central canal stenosis. There is a subtle T 2 and STIR hyperintensity in the posterior margin of the annulus, along the midline. A small annular fissure is suspected. Minimal encroachment upon bilateral subarticular zones. Disk material abuts but does not obscure other traversing L5 nerve root. Mild bilateral foraminal narrowing. L5-S1: Mild loss of disk space height. Minimal generalized posterior disk abnormality. Ligamentum flavum thickening and facet hypertrophy are present. No significant central canal stenosis. Mild ri ght and moderate left foraminal narrowing. IMPRESSION: Degenerative change of the lumbar spine as detailed above. POS: [facility]
== END 2018-07-28 07:44 | disposition home or self-care (01) ==
LOC: BICMRI 07:43
PROVIDERS: ATTEND Orthopaedic Surgery
DX: M48.061 Spinal stenosis, lumbar region without neurogenic claudication (principal); M47.816 Spondylosis without myelopathy or radiculopathy, lumbar region
CPT/HCPCS: 72148

== ENCOUNTER 2018-08-12 10:21 | Emergency (ER) | payer MEDICARE ==
[2018-08-12] MEDS ORDERED: Ibuprofen 800 MG TAB ONE (10:40)
[2018-08-12] MEDS ORDERED: Ondansetron ODT 4 MG TAB ONE (10:52)
[2018-08-12] MEDS ORDERED: Morphine 4 MG/ML VIAL ONE (10:52)
--- NOTE | 2018-08-12 11:28 | RAD ---
4 VIEWS RIGHT KNEE: Date: 08/12/18 COMPARISON: 05/27/18. HISTORY: Right knee gave out at work with right knee pain. History of knee replacement. FINDINGS: Four views of the right knee show the patient to be status post right knee arthroplasty without perih ardware lucency or fracture. A moderate knee effusion is seen. IMPRESSION: Status post right knee arthroplasty without evidence of complication. POS: [facility]
[2018-08-12] MEDS ORDERED: HYDROcodone/Acetaminophen 5/325 mg Tablet ONE (11:34)
== END 2018-08-12 11:50 | disposition home or self-care (01) ==
LOC: ERS 10:21
DX: S83.91XA Sprain of unspecified site of right knee, initial encounter (principal); E11.9 Type 2 diabetes mellitus without complications; E78.5 Hyperlipidemia, unspecified; I10 Essential (primary) hypertension; I48.91 Unspecified atrial fibrillation; X58.XXXA Exposure to other specified factors, initial encounter
CPT/HCPCS: 96372; J2270; Q0162

== ENCOUNTER 2018-10-28 13:26 | Outpatient (CLI) | payer MEDICARE ==
--- NOTE | 2018-10-28 14:25 | ULT ---
ULTRASOUND WITH DOPPLER DUPLEX VENOUS LOWER EXTREMITY RIGHT: Date: 10/28/18 HISTORY: 73-year-old female with right lower extremity pain and edema. TECHNIQUE: Color flow Doppler, spectral waveform analysis of pulsed Doppler, and kuo-scale imaging with jesus trevon and augmentation, were used to evaluate the right common femoral, femoral, popliteal, posterior tibial, and superficial femoral, veins; and the proximal portions of the profunda femoral and greater saphenous, veins. FINDINGS: There is normal compressibility, demonstration of blood flow by color Doppler and pulsed Doppler, and response to augmentation, in all interrogated veins. IMPRESSION: Negative. No deep vein thrombosis in the right lower extremity. jn [] POS: [facility]
--- NOTE | 2018-10-28 15:34 | RAD ---
TWO VIEWS CHEST: 10/28/18 PROVIDED CLINICAL HISTORY: Chest pain. FINDINGS: Comparison is made with the study dated 05/01/18. The cardiac and mediastinal silhouette is unchanged in appearance. Implanted loop recorder device ove rlies the left chest wall. No focal consolidation, pleural fluid, or pneumothorax apparent. IMPRESSION: No evidence for an acute cardiopulmonary process. POS: [facility]
--- NOTE | 2018-10-28 15:37 | RAD ---
LUMBAR SPINE FOUR VIEWS: 10/28/18 COMPARISON: None. HISTORY: Low back pain. FINDINGS: The frontal examination demonstrates moderate degenerative levoscoliosis of the lumbar spine centered at L2. There is disc space narrowing with degenerative end plate change and anterior osteophyte form ation at L2-3 and to a lesser degree L3-4. There is multilevel lower lumbar spine facet hypertrophy i ncluding L3-4 and L4-5. Neutral lateral imaging, flexion lateral imaging, and extension lateral imagi ng demonstrates no significant anterolisthesis of retrolisthesis. IMPRESSION: Multilevel degenerative change noted within the lumbar spine. No acute osseous abnormality. POS: [facility]
== END 2018-10-28 13:27 | disposition home or self-care (01) ==
LOC: BICULT 13:26
PROVIDERS: ATTEND Internal Medicine Cardiovascular Disease
DX: M47.26 Other spondylosis with radiculopathy, lumbar region (principal); R60.0 Localized edema; R07.9 Chest pain, unspecified; M48.062 Spinal stenosis, lumbar region with neurogenic claudication
CPT/HCPCS: 71046; 72110

== ENCOUNTER 2019-04-22 14:49 | Outpatient (CLI) | payer MEDICARE ==
--- NOTE | 2019-04-22 15:23 | ULT ---
US Thyroid STANDARD History: Thyroid nodule. Z05.10 Comparison: Thyroid ultrasound 2018 Findings: Real-time grayscale and color evaluation of the thyroid was performed. The isthmus measures 4 mm in AP dimension. Right lobe measures 3.4 x 1.4 x 1.6 cm and the left lobe m easures 3.7 x 1.1 x 1.1 cm. No abnormal mass. Similar appearance colloid cysts. Inferior to the left lobe of thyroid, extrathyroidal, is a small either lymph node or parathyroid gla nd measuring 6 mm. Impression: Simple colloid cysts. No nodule requiring follow-up or biopsy prior TI-RADS.
== END 2019-04-22 14:50 | disposition home or self-care (01) ==
LOC: BICULT 14:49
PROVIDERS: ATTEND Internal Medicine
DX: E04.1 Nontoxic single thyroid nodule (principal); G93.0 Cerebral cysts
CPT/HCPCS: 76536

== ENCOUNTER 2019-05-07 14:51 | Outpatient (CLI) | payer MEDICARE ==
--- NOTE | 2019-05-07 16:01 | CT ---
CT of the left lower extremity without IV contrast INDICATION: History of left ankle pain and arthritis; [facility] preoperative navigation scan for left ankle replacement; history of fall and broken ankle 7 years ago; history of knee replacement TECHNIQUE: Multiple noncontrast CT images were obtained from the level of the distal left femur throu gh the level of the left foot. Axial, coronal and sagittal reformatted images were constructed from the raw data. 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 There is mild osteoarthrosis involving the posterior subtalar articulation. There is a lateral plate and screw construct fixating a healed lateral malleolar fracture. There is a healed instrumented medial malleolar fractur e. There is diffuse osteopenia. There are scattered osteoarthrosis of the midfoot. There is a left total knee prosthesis that reduces prominent beam scattering artifact from the level of the knee join t. No acute fracture is demonstrated. IMPRESSION: [facility]cy preoperative navigation scan of the left lower extremity for preoperative planni ng. Transcribed Date/Time: 05/07/2019 4:34 PM
== END 2019-05-07 14:52 | disposition home or self-care (01) ==
LOC: BICCT 14:51
PROVIDERS: ATTEND Orthopaedic Surgery
DX: Z01.818 Encounter for other preprocedural examination (principal); M13.872 Other specified arthritis, left ankle and foot

== ENCOUNTER 2019-06-09 10:06 | Outpatient (CLI) | payer MEDICARE ==
[2019-06-09 14:41] LABS: Mean Corpuscular HGB CONC 33.8 g/dL (32.0-36.0); Mean Corpuscular Hemoglobin 30.3 pg (27.0-31.0); Mean Corpuscular Volume 89.9 fL (78.0-98.0); Mean Platelet Volume 9.2 fL (7.4-10.4); Platelet Count 224 thou/uL (130-400); RBC Distribution Width 12.4 % (11.5-14.5); White Blood Cell (WBC) Count 8.9 thou/uL (4.8-10.8)
[2019-06-09 15:00] LABS: Anion Gap 13 mmol/L (10-20); BUN (Urea Nitrogen) 12 mg/dL (9.8-20.1); Calc. Creatinine Clearance 0 mL/min (70-130); Calcium 9.9 mg/dL (7.8-10.44); Carbon Dioxide 26 mmol/L (23-31); Chloride 101 mmol/L (98-107); Estimated GFR-MDRD 86; Glucose 101 mg/dL (83-110); Potassium 3.4 mmol/L (3.5-5.1); Sodium 137 mmol/L (136-145)
--- NOTE | 2019-06-09 20:07 | EKG ---
Test Reason : Blood Pressure : / mmHG Vent. Rate : 064 BPM Atrial Rate : 064 BPM P-R Int : 220 ms QRS Dur : 090 ms QT Int : 420 ms P-R-T Axes : 012 -15 022 degrees QTc Int : 433 ms Sinus rhythm with 1st degree A-V block Otherwise normal ECG When compared with ECG of 19-JAN-2018 13:13, (Unconfirmed) [place] interval has increased Minimal criteria for Anteroseptal infarct are no longer Present T wave inversion now evident in Anterior leads Confirmed by RYLEY FRANCOIS, DR. Shepard ([id number]) on 06/09/2019 8:07:11 PM Referred By: VIRI Confirmed By:DR. Devyn HEDRICK MD
== END 2019-06-09 10:07 | disposition home or self-care (01) ==
LOC: LABBT 10:06
PROVIDERS: ATTEND Orthopaedic Surgery
DX: Z01.818 Encounter for other preprocedural examination (principal); M19.072 Primary osteoarthritis, left ankle and foot
CPT/HCPCS: 80048; 85027; 87081; 93005; 93010

== ENCOUNTER 2019-06-23 12:13 | Outpatient (CLI) | payer MEDICARE ==
--- NOTE | 2019-06-23 14:22 | MMO ---
Bilateral MAMMO Bilat Screen [facility]. CLINICAL HISTORY: Patient is 74 years old and is seen for screening. The patient has no family history of breast cancer. The patient has no personal history of cancer. The patient has a history of bilateral Excisional Biopsy in ? - negative. VIEWS: The views performed were: bilateral craniocaudal with tomosynthesis and bilateral mediolateral oblique with tomosynthesis. FILMS COMPARED: The present examination has been compared to prior imaging studies performed at [facility] on 04/06/2015, 04/16/2016, 05/16/2017 and 05/21/2018. This study has been interpreted with the assistance of computer-aided detection. MAMMOGRAM FINDINGS: There are stable benign appearing calcifications seen in both breasts. There are no suspicious masses, suspicious calcifications, or new areas of architectural distortion. IMPRESSION: THERE IS NO MAMMOGRAPHIC EVIDENCE OF MALIGNANCY. A ROUTINE FOLLOW-UP MAMMOGRAM IN 1 YEAR IS RECOMMENDED. THE RESULTS OF THIS EXAM WERE SENT TO THE PATIENT. ACR BI-RADS Category 2 - Benign finding MAMMOGRAPHY NOTE: 1. A negative mammogram report should not delay a biopsy if a dominant of clinically suspicious mass is present. 2. Approximately 10% to 15% of breast cancers are not detected by mammography. 3. Adenosis and dense breasts may obscure an underlying neoplasm. Reported by: SASHA DEE MD Electonically Signed: [id number]
== END 2019-06-23 12:14 | disposition home or self-care (01) ==
LOC: BICMAMMO 12:13
PROVIDERS: ATTEND Internal Medicine
DX: Z12.31 Encounter for screening mammogram for malignant neoplasm of breast (principal)
CPT/HCPCS: 77063; 77067

== ENCOUNTER 2019-11-25 10:45 | Outpatient (CLI) | payer MEDICARE ==
--- NOTE | 2019-11-25 15:15 | NM ---
Exam: Three-phase bone scan: HISTORY: Bilateral knee replacement left ankle replacement June 2019, left knee instability, pain FINDINGS: Minimal nonspecific increased activity on the flow images in the region of the right knee. Immediate blood pool images demonstrate some subtle increased activity involving the lateral aspect o f the lower thigh, possibly cellulitis. Spot images of both knees demonstrate some minimal increased activity in the lateral soft tissue at t he level of the distal femoral metaphysis region, nonspecific. There does not appear to be any abnormal bone activity involving the right or left knees. Whole body static images demonstrate some increased activity in the bone around the ankle prosthesis on the left side, nonspecific possibly postoperative. There is bilateral renal and bladder activity. There are some scoliotic changes of the lumbar thoracic vertebral column with minimal incre ased activity in the right posterior L4 and L3 vertebral body regions. IMPRESSION: Minimal increased activity in the lateral soft tissues adjacent to the left knee and distal metaphysi s on flow images and blood pool images and delayed static scans. The possibility of some type of soft tissue infection or other soft tissue source of increased activity are considered possibilities. No evidence for abnormal activity within the periprosthetic osseous portions of both knees. Nonspecific somewhat more marked focal increased activity around the region of the left ankle prosthe sis. Minimal focal increased activity in the right posterior lower mid lumbar spine in association with some scoliosis, probably degenerative.
== END 2019-11-25 10:46 | disposition home or self-care (01) ==
LOC: NM 10:45
PROVIDERS: ATTEND Orthopaedic Surgery
DX: T84.023A Instability of internal left knee prosthesis, initial encounter (principal); M41.9 Scoliosis, unspecified
CPT/HCPCS: 78315; A9503

== ENCOUNTER 2020-02-23 14:58 | Outpatient (CLI) | payer MEDICARE ==
--- NOTE | 2020-02-23 16:45 | MRI ---
MR the lumbar spine without contrast INDICATION: 75-year-old female with spinal stenosis; low back pain with right leg numbness COMPARISON: MRI of the lumbar spine dated July 28, 2018 TECHNIQUE: Multiplanar multisequence MR images were obtained of lumbar spine without IV contrast. FINDINGS: Bone marrow: There is mild Modic endplate degenerative change at L2-3. There is levoscoliosis centere d at L2-3. Distal spinal cord and conus: Normal. The conus seen to terminate at L1. Visualized retroperitoneum and paraspinal soft tissues: Normal. Vertebral levels: L5-S1: There is a broad-based disc bulge with facet hypertrophy and loss of disc space height inducin g mild left neural foraminal narrowing. This is stable to the prior exam.. L4-5: There is an asymmetric to the right broad-based disc bulge with facet hypertrophy and ligamentu m flavum hypertrophy inducing mild central canal narrowing with no appreciable neural foraminal narrowing. This appears similar to the prior exam. L3-4: There is a broad-based disc bulge with facet hypertrophy and ligament flavum hypertrophy additi on mild central canal narrowing and mild right neural foraminal narrowing is stable to the prior exam. L2-3: There is an asymmetric to the right disc osteophyte complex with the scoliotic curvature and fa cet hypertrophy inducing moderate right neural foraminal narrowing which is stable appearing. L1-L2: There is a broad-based bulge without appreciable central canal or neural foraminal narrowing T12-L1: No appreciable central canal or neuroforaminal narrowing. IMPRESSION: 1. Stable multilevel spondylosis of the lumbar spine with multilevel neural foraminal narrowing as de tailed above. There is stable mild central canal narrowing at L3-4 and L4-5.
== END 2020-02-23 14:59 | disposition home or self-care (01) ==
LOC: BICMRI 14:58
PROVIDERS: ATTEND Orthopaedic Surgery
DX: M48.062 Spinal stenosis, lumbar region with neurogenic claudication (principal); M47.816 Spondylosis without myelopathy or radiculopathy, lumbar region
CPT/HCPCS: 72148

== ENCOUNTER 2020-07-13 14:25 | Outpatient (CLI) | payer MEDICARE ==
--- NOTE | 2020-07-13 14:52 | MMO ---
Bilateral MAMMO Bilat Screen [facility]. CLINICAL HISTORY: Patient is 75 years old and is seen for screening. The patient has no family history of breast cancer. The patient has no personal history of cancer. The patient has a history of bilateral Excisional Biopsy in ? - negative. VIEWS: The views performed were: bilateral craniocaudal with tomosynthesis and bilateral mediolateral oblique with tomosynthesis. FILMS COMPARED: The present examination has been compared to prior imaging studies performed at [facility] on 04/16/2016, 05/16/2017, 05/21/2018 and 06/23/2019. This study has been interpreted with the assistance of computer-aided detection. MAMMOGRAM FINDINGS: There are scattered fibroglandular densities. There are stable benign appearing calcifications seen in both breasts. There are no suspicious masses, suspicious calcifications, or new areas of architectural distortion. IMPRESSION: THERE IS NO MAMMOGRAPHIC EVIDENCE OF MALIGNANCY. A ROUTINE FOLLOW-UP MAMMOGRAM IN 1 YEAR IS RECOMMENDED. THE RESULTS OF THIS EXAM WERE SENT TO THE PATIENT. ACR BI-RADS Category 2 - Benign finding MAMMOGRAPHY NOTE: 1. A negative mammogram report should not delay a biopsy if a dominant of clinically suspicious mass is present. 2. Approximately 10% to 15% of breast cancers are not detected by mammography. 3. Adenosis and dense breasts may obscure an underlying neoplasm. Reported by: SASHA DEE MD Electonically Signed: [id number]
== END 2020-07-13 14:26 | disposition home or self-care (01) ==
LOC: BICMAMMO 14:25
PROVIDERS: ATTEND Internal Medicine
DX: Z12.31 Encounter for screening mammogram for malignant neoplasm of breast (principal)
CPT/HCPCS: 77063; 77067

== ENCOUNTER 2021-01-23 12:48 | Outpatient (CLI) | payer MEDICARE | END 2021-01-23 12:49 | disposition home or self-care (01) | LOC: BICRAD 12:48 | PROVIDERS: ATTEND Internal Medicine | DX: S99.922A Unspecified injury of left foot, initial encounter (principal); M79.672 Pain in left foot; M20.42 Other hammer toe(s) (acquired), left foot ==

== ENCOUNTER 2021-08-15 11:49 | Outpatient (CLI) | payer MEDICARE | END 2021-08-15 11:50 | disposition home or self-care (01) | LOC: BICMAMMO 11:49 | PROVIDERS: ATTEND Internal Medicine | DX: Z12.31 Encounter for screening mammogram for malignant neoplasm of breast (principal) | CPT/HCPCS: 77063; 77067 ==

== ENCOUNTER 2021-08-21 07:53 | Outpatient (CLI) | payer MEDICARE | END 2021-08-21 07:54 | disposition home or self-care (01) | LOC: BICULT 07:53 | PROVIDERS: ATTEND Internal Medicine | DX: M54.9 Dorsalgia, unspecified (principal); K76.0 Fatty (change of) liver, not elsewhere classified | CPT/HCPCS: 76770 ==

== ENCOUNTER 2021-09-10 14:12 | Outpatient (CLI) | payer MEDICARE ==
[2021-09-10 15:15] LABS: Hemoglobin 12.9 g/dL (12.0-15.5); Mean Corpuscular HGB CONC 32.9 g/dL (32.0-36.0); Mean Corpuscular Hemoglobin 30.1 pg (27.0-33.0); Mean Corpuscular Volume 91.6 fl (81.6-98.3); Mean Platelet Volume 11.6 fl (7.4-10.4); Platelet Count 250 10x3/uL (150-450); RBC Distribution Width 13.1 % (11.5-14.5); Red Blood Cell (RBC) Count 4.28 10x6/uL (3.90-5.03); White Blood Cell (WBC) Count 7.8 10x3/uL (3.5-10.5)
[2021-09-10 15:30] LABS: INR-International Normal Ratio 0.9; PTT 23.9 sec (22.0-33.0); Prothrombin Time 10.3 sec (9.5-12.1)
[2021-09-10 15:32] LABS: Anion Gap 16 mmol/L (10-20); BUN (Urea Nitrogen) 18 mg/dL (9.8-20.1); Calc. Creatinine Clearance 0 mL/min (70-130); Calcium 9.8 mg/dL (7.8-10.44); Carbon Dioxide 25 mmol/L (23-31); Chloride 105 mmol/L (98-107); Glucose 163 mg/dL (83-110); Potassium 3.8 mmol/L (3.5-5.1); Sodium 142 mmol/L (136-145)
[2021-09-11 11:36] LABS: SARS-CoV-2 PCR by NAA Not Detected (NotDetected)
== END 2021-09-10 14:13 | disposition home or self-care (01) ==
LOC: LABBT 14:12
PROVIDERS: ATTEND Internal Medicine Cardiovascular Disease
DX: Z01.812 Encounter for preprocedural laboratory examination (principal); I47.1 Supraventricular tachycardia; Z20.822 Contact with and (suspected) exposure to COVID-19
CPT/HCPCS: 80048; 85027; 85610; 85730; U0003; U0005

== ENCOUNTER 2021-09-14 12:55 | Outpatient (CLI) | payer MEDICARE ==
[2021-09-15 17:04] LABS: SARS-CoV-2 PCR by NAA Not Detected (NotDetected)
== END 2021-09-14 12:56 | disposition home or self-care (01) ==
LOC: LABBT 12:55
PROVIDERS: ATTEND Internal Medicine Cardiovascular Disease
DX: Z01.818 Encounter for other preprocedural examination (principal); I47.1 Supraventricular tachycardia; I51.9 Heart disease, unspecified; K76.9 Liver disease, unspecified; Z20.822 Contact with and (suspected) exposure to COVID-19
CPT/HCPCS: 93005; U0003; U0005; 93010

== ENCOUNTER 2021-09-17 07:53 | Day surgery (SDC) | payer MEDICARE ==
[2021-09-05 14:45] VITALS: BMI 31.7
[2021-09-17] MEDS ORDERED: Lidocaine 1% (PF) 30 ML VIAL ONE (10:14)
== END 2021-09-17 11:08 | disposition home or self-care (01) ==
LOC: SDC 07:53
PROVIDERS: ATTEND Internal Medicine Cardiovascular Disease
PROC: 0JPT32Z Removal of Monitoring Device from Trunk Subcutaneous Tissue and Fascia, Percutaneous Approach (ICD-10-PCS; principal; 2021-09-17)
DX: Z45.09 Encounter for adjustment and management of other cardiac device (principal); I47.1 Supraventricular tachycardia; I10 Essential (primary) hypertension; E78.5 Hyperlipidemia, unspecified; E03.9 Hypothyroidism, unspecified; M19.90 Unspecified osteoarthritis, unspecified site; E11.9 Type 2 diabetes mellitus without complications; Z86.73 Personal history of transient ischemic attack (TIA), and cerebral infarction without residual deficits; Z79.82 Long term (current) use of aspirin; Z79.84 Long term (current) use of oral hypoglycemic drugs; Z79.899 Other long term (current) drug therapy; Z88.8 Allergy status to other drugs, medicaments and biological substances; Z91.048 Other nonmedicinal substance allergy status
CPT/HCPCS: 33286; J2001

== ENCOUNTER 2021-09-27 14:48 | Outpatient (CLI) | payer MEDICARE, OTHER | END 2021-09-27 14:49 | disposition home or self-care (01) | LOC: BICRAD 14:48 → CT 14:49 | PROVIDERS: ATTEND Internal Medicine | DX: S09.90XD Unspecified injury of head, subsequent encounter (principal); R51.9 Headache, unspecified; M54.2 Cervicalgia; M54.9 Dorsalgia, unspecified; M47.816 Spondylosis without myelopathy or radiculopathy, lumbar region; M51.36 Other intervertebral disc degeneration, lumbar region; M41.86 Other forms of scoliosis, lumbar region; M47.812 Spondylosis without myelopathy or radiculopathy, cervical region | CPT/HCPCS: 70260; 70450; 72052; 72100 ==

== ENCOUNTER 2022-02-22 08:18 | Outpatient (CLI) | payer MEDICARE | END 2022-02-22 08:19 | disposition home or self-care (01) | LOC: BICMRI 08:18 → BICRAD 08:19 | PROVIDERS: ATTEND Internal Medicine | DX: R07.81 Pleurodynia (principal); R05.9 Cough, unspecified | CPT/HCPCS: 71046 ==

== ENCOUNTER 2022-05-29 07:09 | Outpatient (CLI) | payer MEDICARE | END 2022-05-29 07:10 | disposition home or self-care (01) | LOC: BICULT 07:09 | PROVIDERS: ATTEND Internal Medicine | DX: R79.89 Other specified abnormal findings of blood chemistry (principal); K76.0 Fatty (change of) liver, not elsewhere classified | CPT/HCPCS: 76700 ==

== ENCOUNTER 2022-08-12 13:04 | Outpatient (CLI) | payer MEDICARE, OTHER | END 2022-08-12 13:05 | disposition home or self-care (01) | LOC: BICRAD 13:04 | PROVIDERS: ATTEND Internal Medicine | DX: J32.9 Chronic sinusitis, unspecified (principal); R05.9 Cough, unspecified; J34.89 Other specified disorders of nose and nasal sinuses | CPT/HCPCS: 70220; 71046 ==

== ENCOUNTER 2022-09-25 12:47 | Outpatient (CLI) | payer MEDICARE, OTHER | END 2022-09-25 12:48 | disposition home or self-care (01) | LOC: BICMAMMO 12:47 | PROVIDERS: ATTEND Internal Medicine | DX: Z12.31 Encounter for screening mammogram for malignant neoplasm of breast (principal) | CPT/HCPCS: 77063; 77067 ==

== ENCOUNTER 2023-10-31 10:55 | Outpatient (CLI) | payer MEDICARE | END 2023-10-31 10:56 | disposition home or self-care (01) | LOC: BICMAMMO 10:55 | PROVIDERS: ATTEND Internal Medicine | DX: Z12.31 Encounter for screening mammogram for malignant neoplasm of breast (principal) | CPT/HCPCS: 77063; 77067 ==

== ENCOUNTER 2024-04-01 12:04 | Emergency (ER) | payer MEDICARE ==
[~2024-04-01 12:04] MED LIST changes: +Iopamidol 370 76% 100 ML VIAL ONE; -Lidocaine 1% w/Epinephrine 1:100K 30 ML VIAL ONE
[2024-04-01 12:52] LABS: #Basophils 0.06 10x3/uL (0.0-0.2); %Basophils 0.9 % (0.0-1.0); %Eosinophils 6.5 % (0.0-10.0); %Lymphocytes 28.6 % (21.0-51.0); %Monocytes 7.4 % (0.0-10.0); %Neutrophils 56.2 % (42.0-75.0); Hematocrit 37.4 % (36.0-47.0); Hemoglobin 12.6 g/dL (12.0-16.0); Mean Corpuscular HGB CONC 33.7 g/dL (32.0-36.0); Mean Corpuscular Hemoglobin 30.3 pg (27.0-31.0); Mean Corpuscular Volume 89.9 fL (78.0-98.0); Mean Platelet Volume 11.5 fL (7.4-10.4); Platelet Count 223 10x3/uL (130-400); RBC Distribution Width 12.9 % (11.5-14.5); Red Blood Cell (RBC) Count 4.16 mill/uL (4.20-5.40)
[2024-04-01 13:22] LABS: ALT (SGPT) 16 U/L (8-55); AST (SGOT) 24 U/L (5-34); Albumin 3.9 g/dL (3.4-4.8); Alkaline Phosphatase 82 U/L (40-110); Anion Gap 14 mmol/L (10-20); BUN (Urea Nitrogen) 23 mg/dL (9.8-20.1); Bilirubin, Total 0.7 mg/dL (0.2-1.2); Calc. Creatinine Clearance 0 mL/min (70-130); Calcium 9.5 mg/dL (7.8-10.44); Carbon Dioxide 23 mmol/L (23-31); Chloride 107 mmol/L (98-107); Estimated GFR 72; Globulin 3.5 g/dL (2.4-3.5); Glucose 178 mg/dL (83-110); Lipase 16 U/L (8-78); Potassium 3.6 mmol/L (3.5-5.1); Protein, Total 7.4 g/dL (5.8-8.1); Sodium 140 mmol/L (136-145)
[2024-04-01 13:41] LABS: Bilirubin Negative (Negative); Blood, Urine Negative (Negative); CAUTI Indications for Culture Pelvic or flank pain; Clarity Clear (Clear); Glucose, Urine (Dipstick) Normal (Negative); Ketone, Urine Negative (Negative); Leukocyte 250 Leu/uL (Negative); Nitrite Negative (Negative); Protein, Urine (Dipstick) Negative (Neg-Trace); RBC/HPF 0-3 HPF (0-3); Specific Gravity, Urine 1.018 (1.002-1.036); Squamous Epithelial 0-3 HPF (0-3); Urobilinogen Normal mg/dL (Less than 2)
[2024-04-01 13:42] LABS: Troponin I Less than 0.010 ng/mL (< 0.028)
[2024-04-01] MEDS ORDERED: Ondansetron PF 4 MG/2 ML Vial ONE ×2 (13:44→15:00)
[2024-04-01] MEDS ORDERED: Morphine 4 MG/ML VIAL ONE (13:44)
[2024-04-01 13:46] LABS: Bacteria/HPF 1+ HPF (None Seen)
[2024-04-01 13:47] LABS: Urine Culture Reflex No No
[2024-04-01] MEDS ORDERED: Piperacillin/Tazobactam 4.5 GM VIAL ONE (13:52)
[2024-04-01] MEDS ORDERED: Sodium Chloride 0.9% 100 ML ONE (13:52)
[2024-04-01] MEDS ORDERED: Metoclopramide HCl 10 MG (2 mL) VIAL ONE (14:57)
[2024-04-01] MEDS ORDERED: diphenhydrAMINE 50 MG/ML VIAL ONE (14:57)
[2024-04-01 17:05] LABS: Lactic Acid 2.2 mmol/L (0.5-2.2)
== END 2024-04-01 17:25 | disposition home or self-care (01) ==
LOC: ERS 12:04
DX: R10.11 Right upper quadrant pain (principal); E11.40 Type 2 diabetes mellitus with diabetic neuropathy, unspecified; I10 Essential (primary) hypertension; I48.91 Unspecified atrial fibrillation; E78.00 Pure hypercholesterolemia, unspecified; Z79.899 Other long term (current) drug therapy; Z79.84 Long term (current) use of oral hypoglycemic drugs
CPT/HCPCS: 71045; 74174; 76705; 80053; 81001; 83605; 83690; 84484; 85025; 87086; 93005; J1200; J2405; J2543; J2765; Q9967; 36415; 96365; 96375; J2272

== ENCOUNTER 2024-06-14 09:34 | Outpatient (CLI) | payer MEDICARE | END 2024-06-14 09:35 | disposition home or self-care (01) | LOC: BICRAD 09:34 | PROVIDERS: ATTEND Physician Assistant Medical | DX: R10.11 Right upper quadrant pain (principal); K30 Functional dyspepsia; R11.2 Nausea with vomiting, unspecified; K59.00 Constipation, unspecified; S92.405A Nondisplaced unspecified fracture of left great toe, initial encounter for closed fracture ==

== ENCOUNTER 2024-06-21 16:46 | Emergency (ER) | payer MEDICARE | END 2024-06-21 19:21 | disposition home or self-care (01) | LOC: ERS 16:46 | DX: S80.12XA Contusion of left lower leg, initial encounter (principal); S90.122A Contusion of left lesser toe(s) without damage to nail, initial encounter; I10 Essential (primary) hypertension; E11.9 Type 2 diabetes mellitus without complications; I48.91 Unspecified atrial fibrillation; W18.09XA Striking against other object with subsequent fall, initial encounter; Z55.0 Illiteracy and low-level literacy ==

== ENCOUNTER 2024-07-14 07:37 | Outpatient (CLI) | payer MEDICARE | END 2024-07-14 07:38 | disposition home or self-care (01) | LOC: SCSMRI 07:37 | PROVIDERS: ATTEND Ophthalmology | DX: H53.2 Diplopia (principal); H49.21 Sixth [abducent] nerve palsy, right eye; I67.82 Cerebral ischemia | CPT/HCPCS: 36415; 70543; 70553; 76376; 82565 ==

== ENCOUNTER 2024-09-03 12:50 | Outpatient (CLI) | payer MEDICARE | END 2024-09-03 12:51 | disposition home or self-care (01) | LOC: BICRAD 12:50 | PROVIDERS: ATTEND Nurse Practitioner | DX: M25.531 Pain in right wrist (principal); M79.641 Pain in right hand; R60.9 Edema, unspecified ==